=== PATIENT | male | born 1980 | race African-American/Black ===

== ENCOUNTER 2018-03-19 22:05 | Emergency (ER) | payer SELFPAY ==
[2018-03-19 22:31] LABS: ADD MAN DIFF? NO
[2018-03-19 22:34] LABS: BASO # 0.1 x10^3/uL (0.0-0.2); BASO % 1 % (0-3); EOS # 0.2 x10^3/uL (0.0-0.7); EOS % 1 % (0-3); HEMATOCRIT 42.4 % (39.0-53.0); HEMOGLOBIN 14.9 g/dL (13.0-17.5); LYMPH # 3.6 x10^3/uL (1.0-4.8); LYMPH % 29 % (24-48); MEAN CORPUSCULAR HEMOGLOBIN 34 pg (25-35); MEAN CORPUSCULAR HGB CONC 35 g/dL (31-37); MEAN CORPUSCULAR VOLUME 96 fL (79-100); MONO # 1.1 x10^3/uL (0.0-1.1); MONO % 9 % (0-9); NEUT # 7.7 x10^3uL (1.8-7.7); NEUT % 61 % (31-73); PLATELET COUNT 246 x10^3/uL (140-400); RED BLOOD COUNT 4.41 x10^6/uL (4.30-5.70); RED CELL DISTRIBUTION WIDTH 14.8 % (11.5-14.5); WHITE BLOOD COUNT 12.5 x10^3/uL (4.0-11.0)
[2018-03-19] MEDS: IV NORMAL SALINE 1000ML BAG 1,000 ML IV (22:40)
[2018-03-19] MEDS: fentaNYL PF VIAL 100 MCG/2 ML VIAL IV (22:41)
[2018-03-19] MEDS: ONDANSETRON PF 4 MG/2 ML VIAL. IV (22:41)
[2018-03-19] MEDS: FAMOTIDINE 20 MG/2 ML VIAL IVP (22:41)
[2018-03-19 22:43] LABS: ANION GAP 10 (6-14); BLOOD UREA NITROGEN 10 mg/dL (8-26); BUN/CREATININE RATIO 11 (6-20); CARBON DIOXIDE 24 mmol/L (21-32); CHLORIDE 104 mmol/L (98-107); CREATININE 0.9 mg/dL (0.7-1.3); GFR 116.2; GLUCOSE 102 mg/dL (70-99); POTASSIUM 4.1 mmol/L (3.5-5.1); SODIUM 138 mmol/L (136-145)
[2018-03-19 22:47] LABS: ALBUMIN 2.8 g/dL (3.4-5.0); ALBUMIN/GLOBULIN RATIO 0.9 (1.0-1.7); ALK PHOS 66 U/L (46-116); ALT (SGPT) 31 U/L (16-63); AST (SGOT) 21 U/L (15-37); LIPASE 349 U/L (73-393); TOTAL BILIRUBIN 0.4 mg/dL (0.2-1.0); TOTAL PROTEIN 5.8 g/dL (6.4-8.2)
[2018-03-19 23:18] LABS: BILIRUBIN,URINE NEGATIVE (NEG); CLARITY,URINE CLEAR; COLOR,URINE YELLOW; GLUCOSE,URINE NEGATIVE (NEG); NITRITE,URINE NEGATIVE (NEG); PROTEIN,URINE NEGATIVE (NEG-TRACE); UROBILINOGEN,URINE 0.2 mg/dL (0.2 mg/dL)
[2018-03-19 23:26] LABS: BACTERIA,URINE 0 /HPF (0-FEW); RBC,URINE 0 /HPF (0-2); SQUAMOUS EPITHELIAL CELL,UR OCC /LPF; WBC,URINE 0 /HPF (0-4)
[2018-03-19] MEDS ORDERED: CONTRAST GIVEN MC (23:45)
[2018-03-19] MEDS: IOHEXOL 300 MG/ML 100ML VIAL. IV (23:51)
== END 2018-03-20 00:37 | disposition home or self-care (01) ==
LOC: ER 03-20 00:37
DX: R10.11 Right upper quadrant pain (principal); R11.2 Nausea with vomiting, unspecified
CPT/HCPCS: 36415; 74177; 76705; 80053; 81001; 83690; 85025; 96361; 96374; 96375; 99285-25; J2405; J3010; J7030; Q9967; S0028

== ENCOUNTER 2019-10-13 04:57 | Emergency (ER) | payer SELFPAY ==
[~2019-10-13] VITALS: Ht 190.5 cm; Wt 74.8 kg
[2019-10-13 05:30] LABS: BASO # 0.1 x10^3/uL (0.0-0.2); BASO % 1 % (0-3); EOS # 0.4 x10^3/uL (0.0-0.7); EOS % 5 % (0-3); HEMATOCRIT 40.9 % (39.0-53.0); HEMOGLOBIN 13.7 g/dL (13.0-17.5); LYMPH # 3.9 x10^3/uL (1.0-4.8); LYMPH % 51 % (24-48); MEAN CORPUSCULAR HEMOGLOBIN 32 pg (25-35); MEAN CORPUSCULAR HGB CONC 34 g/dL (31-37); MEAN CORPUSCULAR VOLUME 95 fL (79-100); MONO # 0.4 x10^3/uL (0.0-1.1); MONO % 5 % (0-9); NEUT # 2.9 x10^3/uL (1.8-7.7); NEUT % 38 % (31-73); PLATELET COUNT 334 x10^3/uL (140-400); RED CELL DISTRIBUTION WIDTH 14.6 % (11.5-14.5); WHITE BLOOD COUNT 7.6 x10^3/uL (4.0-11.0)
[2019-10-13] MEDS ORDERED: IV NORMAL SALINE 1000ML BAG 1,000 ML IV SCH (05:30)
[2019-10-13] MEDS ORDERED: SUMAtriptan SUCC 6 MG/0.5 ML VIAL. SQ ONE (05:30)
[2019-10-13] MEDS ORDERED: ONDANSETRON PF 4 MG/2 ML VIAL. IV ONE (05:30)
[2019-10-13] MEDS ORDERED: KETOROLAC 30 MG/ML VIAL. IVP ONE (05:30)
[2019-10-13 05:38] LABS: CALCIUM 8.3 mg/dL (8.5-10.1); CREATININE 0.8 mg/dL (0.7-1.3); GFR 131.6; POTASSIUM 4.1 mmol/L (3.5-5.1)
--- NOTE | 2019-10-13 05:42 | PHYS DOC ---
Past Medical History Past Medical History: No Pertinent History (LEIGHTON POLANCO Jr., DO) Past Surgical History: No Surgical History (LEIGHTON POLANCO Jr., DO) Alcohol Use: Occasionally Drug Use: Marijuana (LEIGHTON POLANCO Jr., DO) Adult General Chief Complaint Chief Complaint: HEADACHE HPI HPI Patient is a 39-year-old male who presents with history of headache for the last week. Patient states that severity of headache has been waxing and waning and currently rates the headache at a 7 out of 10. He indicates that he has photophobia and has had nausea but no vomiting. He is not aware of any exacerbating or alleviating factors. He denies history of headaches in the past.[] (LEIGHTON POLANCO Jr., DO) Review of Systems Review of Systems Constitutional: Denies fever or chills [] Eyes: Denies change in visual acuity, redness, or eye pain [] Respiratory: Denies cough or shortness of breath [] Cardiovascular: No additional information not addressed in HPI [] Integument: Denies rash or skin lesions [] Neurologic: Complains of headache without focal weakness or sensory changes [] All other systems were reviewed and found to be within normal limits, except as documented in this note. (LEIGHTON POLANCO Jr., DO) Current Medications Current Medications Current Medications Medications (Trade) Dose Ordered Sig/[facility] Start Time Stop Time Status Last Admin Dose Admin Ketorolac Tromethamine (Toradol 30mg Vial) 30 mg 1X ONCE 10/13/19 05:30 10/13/19 05:31 DC 10/13/19 05:30 30 MG Ondansetron HCl (Zofran) 4 mg 1X ONCE 10/13/19 05:30 10/13/19 05:31 DC 10/13/19 05:30 4 MG Sodium Chloride 1,000 ml @ 1,000 mls/hr Q1H 10/13/19 05:30 10/13/19 06:29 DC 10/13/19 05:30 1,000 MLS/HR Sumatriptan Succinate (Imitrex) 6 mg 1X ONCE 10/13/19 05:30 10/13/19 05:31 DC 10/13/19 05:30 6 MG (RADHA MARIE DO) Allergies Allergies Allergies Coded Allergies Type Severity Reaction Last Updated Verified No Known Drug Allergies 7/17/14 No (RADHA MARIE DO) Physical Exam Physical Exam Constitutional: Well developed, well nourished, no acute distress, non-toxic appearance. [] HENT: Normocephalic, atraumatic, bilateral external ears normal, oropharynx m oist, no oral exudates, nose normal. [] Eyes: PERRLA, EOMI, conjunctiva normal, no discharge. [] Neck: Normal range of motion, no tenderness, supple, no stridor. [] Cardiovascular: Regular rate and rhythm[] Lungs & Thorax: Bilateral breath sounds clear to auscultation [] Abdomen: Bowel sounds normal, soft, no tenderness. [] Skin: Warm, dry, no erythema, no rash. [] Extremities: No tenderness, no cyanosis, no clubbing, ROM intact, no edema. [] Neurologic: Alert and oriented X 3, no focal deficits noted. [] (LEIGHTON POLANCO Jr. DO) Current Patient Data Vital Signs Vital Signs Date Time Temp Pulse Resp B/P (MAP) Pulse Ox O2 Delivery O2 Flow Rate FiO2 10/13/19 07:00 68 95 10/13/19 05:04 98.2 20 119/73 (88) Room Air 98.2 (RADHA MARIE DO) Lab Values Laboratory Tests Test 10/13/19 05:12 White Blood Count 7.6 x10^3/uL (4.0-11.0) Red Blood Count 4.30 x10^6/uL (4.30-5.70) Hemoglobin 13.7 g/dL (13.0-17.5) Hematocrit 40.9 % (39.0-53.0) Mean Corpuscular Volume 95 fL (79-100) Mean Corpuscular Hemoglobin 32 pg (25-35) Mean Corpuscular Hemoglobin Concent 34 g/dL (31-37) Red Cell Distribution Width 14.6 % (11.5-14.5) H Platelet Count 334 x10^3/uL (140-400) Neutrophils (%) (Auto) 38 % (31-73) Lymphocytes (%) (Auto) 51 % (24-48) H Monocytes (%) (Auto) 5 % (0-9) Eosinophils (%) (Auto) 5 % (0-3) H Basophils (%) (Auto) 1 % (0-3) Neutrophils # (Auto) 2.9 x10^3/uL (1.8-7.7) Lymphocytes # (Auto) 3.9 x10^3/uL (1.0-4.8) Monocytes # (Auto) 0.4 x10^3/uL (0.0-1.1) Eosinophils # (Auto) 0.4 x10^3/uL (0.0-0.7) Basophils # (Auto) 0.1 x10^3/uL (0.0-0.2) Sodium Level 143 mmol/L (136-145) Potassium Level 4.1 mmol/L (3.5-5.1) Chloride Level 108 mmol/L (98-107) H Carbon Dioxide Level 27 mmol/L (21-32) Anion Gap 8 (6-14) Blood Urea Nitrogen 10 mg/dL (8-26) Creatinine 0.8 mg/dL (0.7-1.3) Estimated GFR (Cockcroft-Gault) 131.6 BUN/Creatinine Ratio 13 (6-20) Glucose Level 71 mg/dL (70-99) Calcium Level 8.3 mg/dL (8.5-10.1) L Total Bilirubin 0.1 mg/dL (0.2-1.0) L Aspartate Amino Transferase (AST) 29 U/L (15-37) Alanine Aminotransferase (ALT) 38 U/L (16-63) Alkaline Phosphatase 56 U/L (46-116) Total Protein 6.4 g/dL (6.4-8.2) Albumin 3.3 g/dL (3.4-5.0) L Albumin/Globulin Ratio 1.1 (1.0-1.7) Laboratory Tests 10/13/19 05:12 Laboratory Tests 10/13/19 05:12 (RADHA MARIE DO) EKG EKG [] (LEIGHTON POLANCO Jr. DO) Radiology/Procedures Radiology/Procedures [] (LEIGHTON POLANCO Jr. DO) Radiology/Procedures [facility] [address] [place] [address] IMAGING REPORT Signed PATIENT: MYRTLE CANTOR EACCOUNT: [id number] : 1980 LOCATION: ER AGE: 39 SEX: M EXAM STATUS: REG ER ORD. PHYSICIAN: LEIGHTON POLANCO Jr., DO REASON: severe headache 1 week PROCEDURE: CT HEAD WO CONTRAST CT HEAD WO CONTRAST History: Severe headache. Comparison: March 24, 2012 Technique: Noncontrast CT imaging was performed of the head. Exposure: One or more of the following individualized dose reduction techniques were utilized for this examination: 1. Automated exposure control 2. Adjustment of the mA and/or kV according to patient size 3. Use of iterative reconstruction technique. Findings: No intracranial hemorrhage. No mass effect. No hydrocephalus. Mild brain parenchymal volume loss for age. Imaged orbits are unremarkable. Imaged paranasal sinuses and mastoid air cells are clear. Impression: 1. No acute intracranial abnormality. 2. Mild brain parenchymal volume loss for age, unchanged. Electronically signed by: Adriano Yanez DO (10/13/2019 6:08 AM) [facility] DICTATED and SIGNED BY: ADRIANO YANEZ DO DATE: 10/13/19607 (RADHA MARIE DO) Course & Med Decision Making Course & Med Decision Making Pertinent Labs and Imaging studies reviewed. (See chart for details) [] (LEIGHTON POLANCO Jr., DO) Course & Med Decision Making he felt much better. (RADHA MARIE DO) Dragon Disclaimer Dragon Disclaimer This electronic medical record was generated, in whole or in part, using a voice recognition dictation system. (LEIGHTON POLANCO Jr., DO) Departure Departure Impression: Primary Impression: Headache Disposition: 01 HOME, SELF-CARE Condition: STABLE Referrals: NO PCP (PCP) follow up with your family doctor as needed Patient Instructions: General Headache Without Cause Scripts Butalbital/Aspirin/Caffeine (FIORINAL 50-325-40 MG CAPSULE) 1 Each Capsule 1 EACH PO QID PRN for HEADACHE, #15 CAP Prov: RADHA MARIE DO 10/13/19 LEIGHTON POLANCO Jr., DO Oct 13, 2019 05:42 RADHA MARIE DO Oct 13, 2019 07:16
[2019-10-13 05:43] LABS: ALBUMIN 3.3 g/dL (3.4-5.0); ALBUMIN/GLOBULIN RATIO 1.1 (1.0-1.7); TOTAL BILIRUBIN 0.1 mg/dL (0.2-1.0); TOTAL PROTEIN 6.4 g/dL (6.4-8.2)
--- NOTE | 2019-10-13 06:11 | RAD ---
CT HEAD WO CONTRAST History: Severe headache. Comparison: March 24, 2012 Technique: Noncontrast CT imaging was performed of the head. Exposure: One or more of the following individualized dose reduction techniques were utilized for this examination: 1. Automated exposure control 2. Adjustment of the mA and/or kV according to patient size 3. Use of iterative reconstruction technique. Findings: No intracranial hemorrhage. No mass effect. No hydrocephalus. Mild brain parenchymal volume loss for age. Imaged orbits are unremarkable. Imaged paranasal sinuses and mastoid air cells are clear. Impression: 1. No acute intracranial abnormality. 2. Mild brain parenchymal volume loss for age, unchanged. Electronically signed by: Adriano Yanez DO (10/13/2019 6:08 AM) [facility]
[2019-10-13] MEDS ORDERED: BUTA1CAP31 PO (07:15)
[2019-10-13 07:30] VITALS: BP 115/63
== END 2019-10-13 07:40 | disposition home or self-care (01) ==
LOC: ER 04:57
DX: R51 Headache (principal); R11.0 Nausea; F12.90 Cannabis use, unspecified, uncomplicated
CPT/HCPCS: 36415; 70450; 80053; 85025; 96372; 96374; 96375; 99285; J1885; J2405; J3030; J7030

== ENCOUNTER 2019-10-24 15:06 | Emergency (ER) | payer SELFPAY ==
[~2019-10-24] VITALS: Ht 190.5 cm; Wt 74.8 kg
[~2019-10-24 15:06] MED LIST: BUTA1CAP31 PO
[2019-10-24 15:40] VITALS: BP 117/73
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
== END 2019-10-24 16:10 | disposition left against medical advice (07) ==
LOC: ER 15:06
DX: S61.412A Laceration without foreign body of left hand, initial encounter (principal); W25.XXXA Contact with sharp glass, initial encounter; Y93.89 Activity, other specified; Y92.89 Other specified places as the place of occurrence of the external cause; Y99.8 Other external cause status
CPT/HCPCS: 99281